=== PATIENT | male | born 1965 | race Caucasian/White ===

== ENCOUNTER 2022-10-30 11:44 | Outpatient (REF) | payer SELFPAY ==
[2022-10-30 14:36] LABS: HCT 47.5 % (40.0-50.0); HGB 15.5 g/dL (13.5-17.5); MCH 29.4 pg (27.0-33.0); MCHC 32.6 % (32.0-36.0); MCV 90 fL (80-95); MPV 11.5 fL (8.0-11.0); Platelet Count 261 10^3/uL (130-400); RBC 5.27 10^6/uL (4.36-5.78); RDW 14.9 % (11.8-14.1); RDW-SD 49.8 fL; WBC 7.53 10^3/uL (4.4-10.8)
[2022-10-30 14:50] LABS: ALT 34 U/L (16-63); AST 25 U/L (15-37); Alkaline Phosphatase 89 U/L (46-116); Anion Gap 6.7 mmol/L (3-11); BUN 26 mg/dL (7-18); Bilirubin, Total 0.6 mg/dL (0.2-1.0); CO2 31.3 mmol/L (21.0-32.0); CREATININE 1.3 mg/dL (0.70-1.30); Chloride 102 mmol/L (98-107); Estimated GFR 64.07 (mL/min/1.73m2); Glucose 68 mg/dL (74-106); Potassium 4.6 mmol/L (3.5-5.1); Sodium 140 mmol/L (136-145); Total Protein 7.6 g/dL (6.4-8.2)
== END 2022-10-30 11:45 | disposition home or self-care (01) ==
LOC: NCHCN 11:44
PROVIDERS: Visit Provider Family Medicine
DX: E11.42 Type 2 diabetes mellitus with diabetic polyneuropathy (principal); I48.91 Unspecified atrial fibrillation; I10 Essential (primary) hypertension; R94.4 Abnormal results of kidney function studies; B35.1 Tinea unguium
CPT/HCPCS: 80053; 85027